=== PATIENT | female | born 1995 | race Hispanic/Latino ===

== ENCOUNTER 2019-06-25 12:52 | Emergency (ER) | payer BC ==
[~2019-06-25 12:52] MED LIST: Iopamidol-370 76% 500 ML 1 ML ONE
[2019-06-25] MEDS ORDERED: Ondansetron PF 4 MG/2 ML Vial ONE (13:05)
[2019-06-25 13:33] LABS: #Eosinphils 0.3 thou/uL (0.0-0.7); #Lymphocytes 2.2 thou/uL (1.20-3.40); #Monocytes 0.8 thou/uL (0.11-0.59); #Neutrophils 4.9 thou/uL (1.40-6.50); %Basophils 0.4 % (0.0-1.0); %Eosinophils 3.4 % (0.0-10.0); %Lymphocytes 27.4 % (21.0-51.0); %Monocytes 9.3 % (0.0-10.0); %Neutrophils 59.5 % (42.0-75.0); Hemoglobin 12.7 g/dL (12.0-16.0); Mean Corpuscular Hemoglobin 27.8 pg (27.0-31.0); Mean Corpuscular Volume 84.4 fL (78.0-98.0); Mean Platelet Volume 8.8 fL (7.4-10.4); Platelet Count 261 thou/uL (130-400); RBC Distribution Width 12.7 % (11.5-14.5); Red Blood Cell (RBC) Count 4.58 mill/uL (4.20-5.40); White Blood Cell (WBC) Count 8.2 thou/uL (4.8-10.8)
[2019-06-25 13:40] LABS: Bacteria/HPF 3+ HPF (None Seen); Bilirubin Negative (Negative); Blood, Urine Trace (Negative); Clarity Clear (Clear); Glucose, Urine (Dipstick) Normal (Negative); Leukocyte 500 Leu/uL (Negative); Nitrite Negative (Negative); Pregnancy Test - Urine (BHCG) Negative (Negative); Protein, Urine (Dipstick) 10 mg/dL (Neg-Trace); Urobilinogen Normal mg/dL (Less than 2); WBC/HPF 21-50 HPF (0-3)
[2019-06-25 13:41] LABS: Pregu Control Background? CLEAR/WHITE (CLR/WHITE); Pregu Control Bar Appear? YES (CONTROL BAR); Specific Gravity 1.018 (1.002-1.036)
[2019-06-25 13:53] LABS: ALT (SGPT) 23 U/L (8-55); AST (SGOT) 17 U/L (5-34); Albumin 4.3 g/dL (3.5-5.0); Alkaline Phosphatase 96 U/L (40-110); Anion Gap 11 mmol/L (10-20); BUN (Urea Nitrogen) 10 mg/dL (7.0-18.7); Bilirubin, Total 0.2 mg/dL (0.2-1.2); Calc. Creatinine Clearance 0 mL/min (70-130); Calcium 9.5 mg/dL (7.8-10.44); Carbon Dioxide 27 mmol/L (22-29); Chloride 103 mmol/L (98-107); Estimated GFR-MDRD Greater than 90; Globulin 3.6 g/dL (2.4-3.5); Glucose 94 mg/dL (70-105); Potassium 3.5 mmol/L (3.5-5.1); Protein, Total 7.9 g/dL (6.0-8.3); Sodium 137 mmol/L (136-145)
[2019-06-25] MEDS ORDERED: Ketorolac Tromethamine 30 MG/ML VIAL ONE (14:14)
--- NOTE | 2019-06-25 15:33 | CT ---
CT ABDOMEN AND PELVIS WITH IV CONTRAST: Date: 06/25/2019 PROVIDED CLINICAL HISTORY: Left flank pain. FINDINGS: Visualized lung bases are free of significant opacity. The liver, spleen, pancreas, kidneys, and adrenal glands appear unremarkable. There is no bowel dilatation, inflammatory fat stranding, or free air apparent. There is trace free p elvic fluid, possibly physiologic. The appendix appears normal. Intrauterine device is noted centrall y within the uterus. The osseous structures demonstrate no concerning lytic or blastic lesions. IMPRESSION: Trace free pelvic fluid, likely physiologic. POS: RENAE
== END 2019-06-25 15:56 | disposition home or self-care (01) ==
LOC: ERS 12:52
DX: R11.2 Nausea with vomiting, unspecified (principal); R19.7 Diarrhea, unspecified
CPT/HCPCS: 74177; 80053; 81003; 81015; 81025; 85025; 87077; 87086; 87186; 96361; 96374; 96375; J1885; J2405; Q9967

== ENCOUNTER 2020-11-17 14:46 | Emergency (ER) | payer OTHER ==
[2020-11-17] MEDS ORDERED: Ketorolac Tromethamine 30 MG/ML VIAL ONE (18:28)
== END 2020-11-17 18:50 | disposition home or self-care (01) ==
LOC: ERS 14:46
DX: M54.5 Low back pain (principal); M62.838 Other muscle spasm
CPT/HCPCS: 96372; 99283; J1885

== ENCOUNTER 2021-02-23 09:16 | Emergency (ER) | payer OTHER, SELFPAY | END 2021-02-23 10:31 | disposition home or self-care (01) | LOC: ERS 09:16 | DX: J11.1 Influenza due to unidentified influenza virus with other respiratory manifestations (principal); M79.10 Myalgia, unspecified site | CPT/HCPCS: 99283 ==

== ENCOUNTER 2021-10-08 19:03 | Emergency (ER) | payer SELFPAY ==
[2021-10-08] MEDS ORDERED: Acetaminophen 500 MG TAB ONE (21:01)
== END 2021-10-08 21:07 | disposition home or self-care (01) ==
LOC: ERS 19:03
DX: H66.91 Otitis media, unspecified, right ear (principal)
CPT/HCPCS: 99282

== ENCOUNTER 2025-03-10 10:08 | Emergency (ER) | payer OTHER | END 2025-03-10 11:17 | LOC: ERS 10:08 | DX: J10.1 Influenza due to other identified influenza virus with other respiratory manifestations (principal) | CPT/HCPCS: 87428; 99283 ==